=== PATIENT | female | born 1975 | race Two or more races ===

== ENCOUNTER 2016-03-21 09:47 | Inpatient (IN) | payer OTHER ==
[~2016-03-21] VITALS: Ht 167.6 cm; Wt 83.5 kg
[~2016-03-21 09:47] MED LIST: BACITRACIN3.5 GM OP; BACTRIM DS TAB1 EAC1 ORAL; CELEXA20 MG ORAL; NEURONTIN600 MG ORAL; SOMA350 MG PO; TYLENOL325 MG ORAL; XANAX1 MG ORAL
--- NOTE | 2016-03-21 10:29 | Emergency Room Report ---
History of Present Illness General Chief Complaint: Vomiting Source: Patient Present Illness HPI Patient is a 40-year-old female who presented after increased vomiting. Patient reports having sore throat and having multiple episodes of vomiting or earlier in the day. Patient had recently been started on Phenergan codeine. The patient had not been having any diarrhea. She denied hematemesis or black or bloody stools. Patient was noted to have recently been treated with antibiotics for a right great toe infection. Allergies: Coded Allergies: IBUPROFEN (Verified Allergy, Unknown, 02/03/16) Patient History Past Medical History: see triage record Last Menstrual Period: 03/06/2016 Now: No : 0 Para: 0 Reviewed Nursing Documentation: PMH: Agreed, PSxH: Agreed Review of Systems All Other Systems: negative except mentioned in HPI Physical Exam Vital Signs Date Time Temp Pulse Resp B/P Pulse Ox O2 Delivery O2 Flow Rate FiO2 03/21/16 09:58 99.3 120 20 121/82 94 Room Air Sp02 EP Interpretation: reviewed, normal General Appearance: normal inspection, well appearing, no apparent distress, alert, GCS 15, obese Head: atraumatic ENT: normal ENT inspection, hearing grossly normal, normal voice Neck: normal inspection, full range of motion, supple, no bony tend Respiratory: normal inspection, lungs clear, normal breath sounds, no respiratory distress, no retraction, no wheezing Cardiovascular #1: regular rate, rhythm, no edema Gastrointestinal: normal inspection, normal bowel sounds, non tender, soft, no guarding, no hernia Genitourinary: no CVA tenderness Musculoskeletal: normal inspection, back normal, normal range of motion Neurologic: normal inspection, alert, oriented x3, responsive, 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 Patient presented for abdominal pain. Differential diagnoses included ischemic bowel, appendicitis, perforated viscus , abdominal aortic aneurysm, inferior myocardial infarction, viral gastroenteritis. The patient was noted to have a slight elevated white blood count with a bandemia consistent with sepsis. Patient's states that she's had recent a urinary tract infection as well as some antibiotic use with Keflex in the past.The patient started on IV antibiotics. She was given IV fluids. The CT of the abdomen pelvis read by radiologist showed fatty liver and as well as a distended stomach and some small lesions in the liver. Patient was discussed with Dr. aldridge for inpatient management. . Labs Test 03/21/16 10:30 03/21/16 11:04 White Blood Count 12.9 K/UL (4.8-10.8) Red Blood Count 4.87 M/UL (4.20-5.40) Hemoglobin 13.5 G/DL (12.0-16.0) Hematocrit 41.6 % (37.0-47.0) Mean Corpuscular Volume 86 FL (80-99) Mean Corpuscular Hemoglobin 27.6 PG (27.0-31.0) Mean Corpuscular Hemoglobin Concent 32.3 G/DL (32.0-36.0) Red Cell Distribution Width 14.0 % (11.6-14.8) Platelet Count 203 K/UL (150-450) Mean Platelet Volume 7.2 FL (6.5-10.1) Neutrophils (%) (Auto) % (45.0-75.0) Lymphocytes (%) (Auto) % (20.0-45.0) Monocytes (%) (Auto) % (1.0-10.0) Eosinophils (%) (Auto) % (0.0-3.0) Basophils (%) (Auto) % (0.0-2.0) Differential Total Cells Counted 100 Neutrophils % (Manual) 74 % (45-75) Lymphocytes % (Manual) 2 % (20-45) Monocytes % (Manual) 5 % (1-10) Eosinophils % (Manual) 2 % (0-3) Basophils % (Manual) 0 % (0-2) Band Neutrophils 17 % (0-8) Platelet Estimate Adequate Platelet Morphology Normal Anisocytosis 1+ Sodium Level 135 mEQ/L (135-145) Potassium Level 3.7 mEQ/L (3.4-4.9) Chloride Level 93 mEQ/L (98-107) Carbon Dioxide Level 28 mEQ/L (20-30) Anion Gap 14 (5-15) Blood Urea Nitrogen 6 mg/dL (7-23) Creatinine 0.8 mg/dL (0.5-0.9) Estimat Glomerular Filtration Rate > 60 mL/min (>60) Glucose Level 133 mg/dL (74-106) Lactic Acid Level 1.70 mmol/L (0.66-2.22) Calcium Level 8.8 mg/dL (8.6-10.2) Total Bilirubin 1.7 mg/dL (0.0-1.2) Direct Bilirubin 0.7 mg/dL (0.1-0.3) Aspartate Amino Transf (AST/SGOT) 44 U/L (5-40) Alanine Aminotransferase (ALT/SGPT) 56 U/L (3-33) Alkaline Phosphatase 75 U/L (35-104) Total Creatine Kinase 141 U/L (26-140) Creatine Kinase MB 1.5 ng/mL (< 3.8) Creatine Kinase MB Relative Index 1.0 Troponin I < 0.30 ng/mL (<=0.30) Total Protein 7.1 g/dL (6.6-8.7) Albumin 4.1 g/dL (3.5-5.2) Globulin 3.0 g/dL Albumin/Globulin Ratio 1.3 (1.0-2.7) Urine Color Pale yellow Urine Appearance Clear Urine pH 7 (4.5-8.0) Urine Specific [place] 1.005 (1.005-1.035) Urine Protein Negative (NEGATIVE) Urine Glucose (UA) Negative (NEGATIVE) Urine Ketones Negative (NEGATIVE) Urine Occult Blood 1+ (NEGATIVE) Urine Nitrite Negative (NEGATIVE) Urine Bilirubin Negative (NEGATIVE) Urine Urobilinogen Normal MG/DL (0.0-1.0) Urine Leukocyte Esterase 1+ (NEGATIVE) Urine RBC 0-2 /HPF (0 - 2) Urine WBC 0-2 /HPF (0 - 2) Urine Squamous Epithelial Cells Few /LPF (NONE/OCC) Urine Bacteria Occasional /HPF (NONE) Urine HCG, Qualitative Negative EKG Diagnostic Results Rate: tachycardiac Rhythm: NSR ST Segments: no acute changes Rhythm Strip Diag. Results EP Interpretation: yes Rhythm: no PVC's, no ectopy, other - sinus tachycardia, 113 Chest X-Ray Diagnostic Results EP Interpretation: Yes Number of Views: 1 Last Vital Signs Date Time Temp Pulse Resp B/P Pulse Ox O2 Delivery O2 Flow Rate FiO2 03/21/16 09:58 99.3 120 20 121/82 94 Room Air Status: unchanged Disposition: XFER SHT-TRM HOSP Condition: Serious Renny,Song Mar 21, 2016 10:29
[2016-03-21 10:43] VITALS: BP 128/92
[2016-03-21 10:53] LABS: MEAN CORPUSCULAR HEMOGLOBIN 27.6 PG (27.0-31.0); MEAN CORPUSCULAR HGB CONC 32.3 G/DL (32.0-36.0); MEAN CORPUSCULAR VOLUME 86 FL (80-99); MEAN PLATELET VOLUME 7.2 FL (6.5-10.1); PLATELET COUNT 203 K/UL (150-450); RED BLOOD COUNT 4.87 M/UL (4.20-5.40); WHITE BLOOD COUNT 12.9 K/UL (4.8-10.8)
[2016-03-21 11:06] LABS: ALANINE AMINOTRANSFERASE 56 U/L (3-33); ALBUMIN/GLOBULIN RATIO 1.3 (1.0-2.7); ANION GAP 14 (5-15); ASPARTATE AMINO TRANSFERASE 44 U/L (5-40); CALCIUM 8.8 mg/dL (8.6-10.2); CARBON DIOXIDE 28 mEQ/L (20-30); CHLORIDE 93 mEQ/L (98-107); CREATININE 0.8 mg/dL (0.5-0.9); GLOMERULAR FILTRATION RATE > 60 mL/min (>60); HEMOLYSIS 2; POTASSIUM 3.7 mEQ/L (3.4-4.9); SODIUM 135 mEQ/L (135-145); TOTAL PROTEIN 7.1 g/dL (6.6-8.7)
[2016-03-21 11:10] LABS: TROPONIN I < 0.30 ng/mL (<=0.30)
[2016-03-21 11:16] LABS: APPEARANCE,URINE CLEAR; KETONES,URINE NEGATIVE (NEGATIVE); LEUKOCYTE ESTERASE ,URINE 1+ (NEGATIVE); NITRITE,URINE NEGATIVE (NEGATIVE); PH,URINE 7 (4.5-8.0); PROTEIN,URINE NEGATIVE (NEGATIVE); UROBILINOGEN,URINE NORMAL MG/DL (0.0-1.0)
[2016-03-21 11:16] LABS: CKMB 1.5 ng/mL (< 3.8)
[2016-03-21 11:23] LABS: BACTERIA,URINE OCCASIONAL /HPF; RBC,URINE 0-2 /HPF (0 - 2); SQUAMOUS EPITHELIAL CELL,UR FEW /LPF (NONE/OCC); WBC,URINE 0-2 /HPF (0 - 2)
[2016-03-21 11:27] LABS: BAND NEUTROPHILS % (MANUAL) 17 % (0-8); BASOPHILS % (MANUAL) 0 % (0-2); BILIRUBIN,DIRECT 0.7 mg/dL (0.1-0.3); EOSINOPHILS % (MANUAL) 2 % (0-3); LYMPHOCYTES % (MANUAL) 2 % (20-45); NEUTROPHILS % (MANUAL) 74 % (45-75); PLATELET ESTIMATE ADEQUATE; PLATELET MORPHOLOGY NORMAL; TOTAL CELLS COUNTED 100
[2016-03-21 11:28] LABS: ANISOCYTOSIS 1+
[2016-03-21] MEDS ORDERED: Lidocaine 2% Visc 15ml soln ORAL ONE (11:30)
--- NOTE | 2016-03-21 13:19 | Diagnostic Imaging Report ---
Indication: SOB Technique: One view of the chest Comparison: 02/03/2016 Findings: Body habitus limits evaluation. Less optimal inspiration currently. The heart appears borderline enlarged, although this is probably artifact of the differences in degree of inspiration. Lungs and pleural spaces are clear. No significant change, allowing for differences in degree of inspiration. Impression: No acute process. Hypoventilatory exam
[2016-03-21 14:32] VITALS: BP 108/72
[2016-03-21 16:03] VITALS: BP 103/72
[2016-03-21] MEDS ORDERED: Nitroglycerin Subl 0.4mg tab (Bottle Of 25) SL PRN (16:30)
[2016-03-21] MEDS ORDERED: Morphine Sulfate 2mg/ml Inj IVP PRN (16:30)
[2016-03-21] MEDS ORDERED: Mylanta II UD 30ml ORAL PRN (16:30)
[2016-03-21] MEDS ORDERED: Miralax 17gm pkt ORAL PRN (16:30)
--- NOTE | 2016-03-21 17:49 | History and Physical ---
History of Present Illness General Date patient seen: Mar 21, 2016 Reason for Hospitalization: Vomiting Present Illness HPI 40-year-old female who presented after increased vomiting. Patient reports having sore throat and having multiple episodes of vomiting or earlier in the day. Patient had recently been started on Phenergan codeine. Because of her sore throat, she is unable to ear regular food. Her mother just was diagnosed to have strep throat. Allergies: Coded Allergies: IBUPROFEN (Verified Allergy, Unknown, 02/03/16) Medication History Scheduled Bacitracin (Bacitracin), 1 APPLIC OP BID Carisoprodol* (Soma*), 350 MG PO Q6H, (Reported) Citalopram Hydrobromide* (Celexa*), 20 MG ORAL DAILY, (Reported) Gabapentin* (Neurontin*), 600 MG ORAL EVERY 6 HOURS, (Reported) Trimethoprim/Sulfamethoxazole 160/800* (Bactrim Ds Tablet*), 1 TAB ORAL TWICE A DAY Scheduled PRN Acetaminophen (Tylenol), 650 MG ORAL Q6H PRN for Prn Pain/Headache/Temp > 101 Miscellaneous Medications Alprazolam* (Xanax*), 1 TAB ORAL, (Reported) Patient History Healthcare decision maker Resuscitation status Advanced Directive on File Review of Systems All Other Systems: negative except mentioned in HPI Physical Exam Lines, tubes and drains: peripheral, central line HEENT: normocephalic Neck: tenderness, tender lateral Respiratory/Chest: chest wall non-tender, lungs clear Cardiovascular/Chest: normal peripheral pulses, normal rate Abdomen: normal bowel sounds, non tender Genitourinary/Rectal: normal genital exam Last 24 Hour Vital Signs Date Time Temp Pulse Resp B/P Pulse Ox O2 Delivery O2 Flow Rate FiO2 03/21/16 16:03 98.9 108 24 103/72 95 Room Air 03/21/16 15:22 98.9 120 22 108/72 95 Room Air 03/21/16 14:32 98.9 120 22 108/72 95 Room Air 03/21/16 10:43 99.3 118 16 128/92 95 Room Air 03/21/16 09:58 99.3 120 20 121/82 94 Room Air Laboratory Tests Test 03/21/16 10:30 03/21/16 11:04 White Blood Count 12.9 K/UL (4.8-10.8) H Red Blood Count 4.87 M/UL (4.20-5.40) Hemoglobin 13.5 G/DL (12.0-16.0) Hematocrit 41.6 % (37.0-47.0) Mean Corpuscular Volume 86 FL (80-99) Mean Corpuscular Hemoglobin 27.6 PG (27.0-31.0) Mean Corpuscular Hemoglobin Concent 32.3 G/DL (32.0-36.0) Red Cell Distribution Width 14.0 % (11.6-14.8) Platelet Count 203 K/UL (150-450) Mean Platelet Volume 7.2 FL (6.5-10.1) Neutrophils (%) (Auto) % (45.0-75.0) Lymphocytes (%) (Auto) % (20.0-45.0) Monocytes (%) (Auto) % (1.0-10.0) Eosinophils (%) (Auto) % (0.0-3.0) Basophils (%) (Auto) % (0.0-2.0) Differential Total Cells Counted 100 Neutrophils % (Manual) 74 % (45-75) Lymphocytes % (Manual) 2 % (20-45) L Monocytes % (Manual) 5 % (1-10) Eosinophils % (Manual) 2 % (0-3) Basophils % (Manual) 0 % (0-2) Band Neutrophils 17 % (0-8) H Platelet Estimate Adequate Platelet Morphology Normal Anisocytosis 1+ Sodium Level 135 mEQ/L (135-145) Potassium Level 3.7 mEQ/L (3.4-4.9) Chloride Level 93 mEQ/L (98-107) L Carbon Dioxide Level 28 mEQ/L (20-30) Anion Gap 14 (5-15) Blood Urea Nitrogen 6 mg/dL (7-23) L Creatinine 0.8 mg/dL (0.5-0.9) Estimat Glomerular Filtration Rate > 60 mL/min (>60) Glucose Level 133 mg/dL (74-106) H Lactic Acid Level 1.70 mmol/L (0.66-2.22) Calcium Level 8.8 mg/dL (8.6-10.2) Total Bilirubin 1.7 mg/dL (0.0-1.2) H Direct Bilirubin 0.7 mg/dL (0.1-0.3) H Aspartate Amino Transf (AST/SGOT) 44 U/L (5-40) H Alanine Aminotransferase (ALT/SGPT) 56 U/L (3-33) H Alkaline Phosphatase 75 U/L (35-104) Total Creatine Kinase 141 U/L (26-140) H Creatine Kinase MB 1.5 ng/mL (< 3.8) Creatine Kinase MB Relative Index 1.0 Troponin I < 0.30 ng/mL (<=0.30) Total Protein 7.1 g/dL (6.6-8.7) Albumin 4.1 g/dL (3.5-5.2) Globulin 3.0 g/dL Albumin/Globulin Ratio 1.3 (1.0-2.7) Urine Color Pale yellow Urine Appearance Clear Urine pH 7 (4.5-8.0) Urine Specific [place] 1.005 (1.005-1.035) Urine Protein Negative (NEGATIVE) Urine Glucose (UA) Negative (NEGATIVE) Urine Ketones Negative (NEGATIVE) Urine Occult Blood 1+ (NEGATIVE) H Urine Nitrite Negative (NEGATIVE) Urine Bilirubin Negative (NEGATIVE) Urine Urobilinogen Normal MG/DL (0.0-1.0) Urine Leukocyte Esterase 1+ (NEGATIVE) H Urine RBC 0-2 /HPF (0 - 2) Urine WBC 0-2 /HPF (0 - 2) Urine Squamous Epithelial Cells Few /LPF (NONE/OCC) Urine Bacteria Occasional /HPF (NONE) Urine HCG, Qualitative Negative Microbiology Date/Time Source Procedure Growth Status 03/21/16 10:30 Nasal Nares Influenza Types A,B Antigen (MALU) - Final Complete Height (Feet): 5 Height (Inches): 6.00 Weight (Pounds): 184 Medications Current Medications Medications (Trade) Dose Ordered Sig/Elian Route PRN Reason Start Time Stop Time Status Last Admin Dose Admin Acetaminophen (Tylenol) 650 mg Q4H PRN ORAL fever 03/21/16 16:30 04/20/16 16:29 UNV Al Hydroxide/Mg Hydroxide (Mylanta II) 30 ml Q6H PRN ORAL dyspepsia 03/21/16 16:30 04/20/16 16:29 UNV Carisoprodol (Soma) 350 mg Q6H ORAL 03/21/16 16:30 04/20/16 16:29 UNV Dextrose STAT PRN IV Hypoglycemia 12/30/16 16:30 04/20/16 16:29 UNV Dextrose/Sodium Chloride (D5 0.45% NS) 1,000 ml @ 75 mls/hr [id number] IV 03/21/16 17:40 04/20/16 17:39 UNV Diphenhydramine HCl (Benadryl) 25 mg Q6H PRN ORAL Itching/Pruritis 03/21/16 16:30 04/20/16 16:29 UNV Gabapentin 600 mg 600 mg EVERY 6 HOURS ORAL 03/21/16 18:00 04/20/16 17:59 UNV Heparin Sodium (Porcine) (Heparin 5000 units/ml) 5,000 units EVERY 12 HOURS SUBQ 03/21/16 21:00 04/20/16 20:59 UNV Morphine Sulfate (Morphine Sulfate) 2 mg EVERY 4 HOURS PRN IVP severe Pain (Pain Scale 7-10) 03/21/16 16:30 03/28/16 16:29 UNV Nitroglycerin (Ntg) 0.4 mg Q5M X 3 DOSES PRN SL Prn Chest Pain 03/21/16 16:30 04/20/16 16:29 UNV Ondansetron HCl (Zofran) 4 mg Q6H PRN IVP Nausea & Vomiting 03/21/16 16:30 04/20/16 16:29 UNV Piperacillin Sod/ Tazobactam Sod/ Sodium Chloride (Zosyn/Sodium Chloride 100ml bag) 100 ml @ 200 mls/hr EVERY 6 HOURS IVPB 03/21/16 18:00 03/28/16 17:59 UNV Polyethylene Glycol (Miralax) 17 gm HSPRN PRN ORAL Constipation 03/21/16 16:30 04/20/16 16:29 UNV Temazepam (Restoril) 15 mg HSPRN PRN ORAL Insomnia 03/21/16 16:30 03/28/16 16:29 UNV Assessment/Plan Problem List: (1) Sepsis ICD Codes: A41.9 - Sepsis, unspecified organism SNOMED: 34379716 Qualifiers: Qualified Codes: A40.0 - Sepsis due to Streptococcus, group A (2) Intractable vomiting ICD Codes: R11.10 - Vomiting, unspecified SNOMED: 858898174, [id number] Qualifiers: Qualified Codes: R11.11 - Vomiting without nausea (3) Pharyngitis ICD Codes: J02.9 - Acute pharyngitis, unspecified SNOMED: [id number] Qualifiers: Qualified Codes: J02.0 - Streptococcal pharyngitis Assessment/Plan NPO IV fluids IV antibiotics symptomatic treatment GI and ID evaluation SUMMER ALFORD Mar 21, 2016 17:48
[2016-03-21 19:39] VITALS: BP 115/74
[2016-03-21 20:30] VITALS: BP 119/73
[2016-03-21] MEDS: D5 1/2NS 1,000 ML IV SCH (21:26)
[2016-03-21] MEDS: Heparin 5000 units/ml inj SUBQ SCH (21:27)
[2016-03-22] VITALS: BP 121/66
[2016-03-22 04:00] VITALS: BP 107/62
[2016-03-22 06:49] LABS: BASOPHILS % (AUTO) 0.3 % (0.0-2.0); EOSINOPHILS % (AUTO) 2.4 % (0.0-3.0); LYMPHOCYTES % (AUTO) 9.4 % (20.0-45.0); MEAN CORPUSCULAR HEMOGLOBIN 27.8 PG (27.0-31.0); MEAN CORPUSCULAR HGB CONC 32.7 G/DL (32.0-36.0); MEAN CORPUSCULAR VOLUME 85 FL (80-99); MEAN PLATELET VOLUME 8.6 FL (6.5-10.1); MONOCYTES % (AUTO) 6.6 % (1.0-10.0); NEUTROPHILS % (AUTO) 81.3 % (45.0-75.0); PLATELET COUNT 145 K/UL (150-450); RED BLOOD COUNT 4.26 M/UL (4.20-5.40); RED CELL DISTRIBUTION WIDTH 14.3 % (11.6-14.8); WHITE BLOOD COUNT 7.4 K/UL (4.8-10.8)
[2016-03-22 07:24] LABS: ALANINE AMINOTRANSFERASE 51 U/L (3-33); AMYLASE 16 U/L (10-110); ANION GAP 12 (5-15); ASPARTATE AMINO TRANSFERASE 43 U/L (5-40); CALCIUM 8.2 mg/dL (8.6-10.2); CARBON DIOXIDE 29 mEQ/L (20-30); CHLORIDE 95 mEQ/L (98-107); CREATININE 0.9 mg/dL (0.5-0.9); GLOMERULAR FILTRATION RATE > 60 mL/min (>60); HEMOLYSIS 5; LIPASE 7 U/L (< 60); SODIUM 136 mEQ/L (135-145); TOTAL PROTEIN 6.5 g/dL (6.6-8.7)
[2016-03-22 07:49] LABS: BILIRUBIN,DIRECT 1.2 mg/dL (0.1-0.3)
[2016-03-22 08:00] VITALS: BP 120/65
[2016-03-22] MEDS: Heparin 5000 units/ml inj SUBQ SCH ×2 (09:00→20:01)
--- NOTE | 2016-03-22 09:31 | Consultation ---
Consult Note Consult Note ID CONSULT: Alan# [id number] Assessment/Plan ASSESSMENT: 40 y/o female with: // Sore throat ( pre-dated vomiting ) r/o GAS vs viral // Right hallux ingrown toenail / paronychia SP Rx bactrim // Leukocytosis r/o infection - resolved, afebrile ( some component of hemoconcentration ) - UA(-), influenza(-), CXR NAF, BCx, CT A/P pending // N/V x2 - resolved, CT A/P pending - lipase WNL, B-hCG(-) // Elevated LFTs - improved // Obesity // No ABX allergies // Full Code PLAN: - continue empiric zosyn d# 1 - check GAS screen, monospot, HIV - f/u cultures - f/u CT A/P - monitor CBC, temperatures - monitor CMP - supportive care Thanks! Will follow JACQUELINE VENEGAS Mar 22, 2016 09:31
[2016-03-22 12:00] VITALS: BP 121/67
[2016-03-22] MEDS: D5 1/2NS 1,000 ML IV SCH ×2 (14:15→22:25)
--- NOTE | 2016-03-22 14:38 | Diagnostic Imaging Report ---
Clinical Indication: PAIN, 32-year-old female with increased from the Technique: No oral contrast utilized, per emergency room physician request IV administration nonionic contrast. Venous phase spiral acquisition obtained through the abdomen and pelvis. Multiplanar reconstructions were generated. Total dose length product 1101 mGycm. CTDIvol(s) 19 mGy Comparison: None Findings: There are scattered colonic diverticula. No evidence of diverticulitis. Normal appendix. No small bowel distention. No free or loculated intraperitoneal air or fluid. The distal esophagus is unremarkable. The stomach is mildly distended, filled with fluid. The duodenum is unremarkable. The liver is enlarged. It is diffusely hypoattenuating, consistent with fatty change. There is a subcentimeter low-attenuation border between segment 6 and 7 posteriorly, too small to characterize. A similar lesion is seen in the left lobe, segment 2. Gallbladder, bile ducts, pancreas are unremarkable. The spleen is enlarged, measuring 16 cm long axis dimension. The adrenals and kidneys are unremarkable. No retroperitoneal or mesenteric mass or adenopathy. No pelvic mass or adenopathy. The bladder is distended. Uterus and ovaries are unremarkable. The included lung bases are clear. The bones demonstrate a fusion anomaly of the L1 posterior and facet degeneration at L5-S1, are otherwise unremarkable. Impression: No acute process Somewhat distended fluid-filled stomach, nonspecific Enlarged fatty liver Splenomegaly Too small to characterize hepatic low attenuation lesions, probably benign simple cysts or bile hamartomas. No further followup necessary Incidental findings as noted, including minimal degenerative spondylosis, posterior L1 fusion anomaly The CT scanner at [facility] is accredited by the [employer] and the scans are performed using protocols designed to limit radiation exposure to as low as reasonably achievable to attain images of sufficient resolution adequate for diagnostic evaluation.
[2016-03-22] MEDS ORDERED: Hurricaine 20% Spray ORO PRN (14:45)
--- NOTE | 2016-03-22 15:24 | Internal Med Progress Note ---
Subjective Date of Service: Mar 22, 2016 Physician Name LongoriaGerald Attending Physician Elda Yap Current Medications Medications (Trade) Dose Ordered Sig/Elian Route PRN Reason Start Time Stop Time Status Last Admin Dose Admin Acetaminophen (Tylenol) 650 mg Q4H PRN ORAL fever 03/21/16 16:30 04/20/16 16:29 Al Hydroxide/Mg Hydroxide (Mylanta II) 30 ml Q6H PRN ORAL dyspepsia 03/21/16 16:30 04/20/16 16:29 Benzocaine (Hurricaine) 1 sprays Q1H PRN PANCHITO PRN SORE THROAT UNRELIEVED BY 03/22/16 14:45 04/21/16 14:44 Carisoprodol (Soma) 350 mg Q6H PRN ORAL MUSCLE SPASM 03/21/16 16:30 04/20/16 16:29 Dextrose STAT PRN IV Hypoglycemia 03/21/16 16:30 04/20/16 16:29 Dextrose/Sodium Chloride (D5 0.45% NS) 1,000 ml @ 75 mls/hr [id number] IV 03/21/16 19:45 04/20/16 19:44 03/22/16 14:15 Diphenhydramine HCl (Benadryl) 25 mg Q6H PRN ORAL Itching/Pruritis 03/21/16 16:30 04/20/16 16:29 Gabapentin 600 mg 600 mg EVERY 6 HOURS ORAL 03/21/16 21:00 04/20/16 20:59 03/22/16 14:16 Heparin Sodium (Porcine) (Heparin 5000 units/ml) 5,000 units EVERY 12 HOURS SUBQ 03/21/16 21:00 04/20/16 20:59 03/21/16 21:27 Morphine Sulfate (Morphine Sulfate) 2 mg Q4H PRN IVP severe Pain (Pain Scale 7-10) 03/21/16 16:30 03/28/16 16:29 Nitroglycerin (Ntg) 0.4 mg Q5M X 3 DOSES PRN SL Prn Chest Pain 03/21/16 16:30 04/20/16 16:29 Ondansetron HCl (Zofran) 4 mg Q6H PRN IVP Nausea & Vomiting 03/21/16 16:30 04/20/16 16:29 Piperacillin Sod/ Tazobactam Sod/ Sodium Chloride (Zosyn/Sodium Chloride 100ml bag) 100 ml @ 25 mls/hr Q8H IVPB 03/21/16 22:30 03/28/16 22:29 03/22/16 14:15 Polyethylene Glycol (Miralax) 17 gm HSPRN PRN ORAL Constipation 03/21/16 16:30 04/20/16 16:29 Temazepam (Restoril) 15 mg HSPRN PRN ORAL Insomnia 03/21/16 16:30 03/28/16 16:29 Allergies: Coded Allergies: IBUPROFEN (Verified Allergy, Unknown, 02/03/16) ROS Limited/Unobtainable: No Constitutional: Reports: no symptoms HEENT: Reports: no symptoms Cardiovascular: Reports: no symptoms Gastrointestinal/Abdominal: Reports: abdominal pain, nausea, vomiting Genitourinary: Reports: no symptoms Neurologic/Psychiatric: Reports: no symptoms Subjective Cover for Int Med-Dr Yap Objective Last Vital Signs Date Time Temp Pulse Resp B/P Pulse Ox O2 Delivery O2 Flow Rate FiO2 03/22/16 12:00 98.4 109 20 121/67 96 Room Air General Appearance: WD/WN, no apparent distress, alert EENT: PERRL/EOMI, normal ENT inspection Neck: non-tender, normal alignment, supple Cardiovascular: normal peripheral pulses, normal rate, regular rhythm, no gallop/murmur, no JVD Respiratory/Chest: chest wall non-tender, lungs clear, normal breath sounds, no respiratory distress, no accessory muscle use Abdomen: no organomegaly, no mass, decreased bowel sounds, distended, guarding , tender Extremities: normal range of motion, non-tender 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 grossly normal, no motor/sensory deficits Skin: normal pigmentation, warm/dry Laboratory Tests Test 03/22/16 05:10 03/22/16 05:15 White Blood Count 7.4 K/UL (4.8-10.8) Red Blood Count 4.26 M/UL (4.20-5.40) Hemoglobin 11.8 G/DL (12.0-16.0) L Hematocrit 36.2 % (37.0-47.0) L Mean Corpuscular Volume 85 FL (80-99) Mean Corpuscular Hemoglobin 27.8 PG (27.0-31.0) Mean Corpuscular Hemoglobin Concent 32.7 G/DL (32.0-36.0) Red Cell Distribution Width 14.3 % (11.6-14.8) Platelet Count 145 K/UL (150-450) L Mean Platelet Volume 8.6 FL (6.5-10.1) Neutrophils (%) (Auto) 81.3 % (45.0-75.0) H Lymphocytes (%) (Auto) 9.4 % (20.0-45.0) L Monocytes (%) (Auto) 6.6 % (1.0-10.0) Eosinophils (%) (Auto) 2.4 % (0.0-3.0) Basophils (%) (Auto) 0.3 % (0.0-2.0) Sodium Level 136 mEQ/L (135-145) Potassium Level 4.0 mEQ/L (3.4-4.9) Chloride Level 95 mEQ/L (98-107) L Carbon Dioxide Level 29 mEQ/L (20-30) Anion Gap 12 (5-15) Blood Urea Nitrogen 10 mg/dL (7-23) Creatinine 0.9 mg/dL (0.5-0.9) Estimat Glomerular Filtration Rate > 60 mL/min (>60) Glucose Level 124 mg/dL (74-106) H Calcium Level 8.2 mg/dL (8.6-10.2) L Total Bilirubin 2.1 mg/dL (0.0-1.2) H Direct Bilirubin 1.2 mg/dL (0.1-0.3) H Aspartate Amino Transf (AST/SGOT) 43 U/L (5-40) H Alanine Aminotransferase (ALT/SGPT) 51 U/L (3-33) H Alkaline Phosphatase 88 U/L (35-104) Total Protein 6.5 g/dL (6.6-8.7) L Albumin 3.3 g/dL (3.5-5.2) L Globulin 3.2 g/dL Albumin/Globulin Ratio 1.0 (1.0-2.7) Amylase Level 16 U/L (10-110) Lipase 7 U/L (< 60) Activated Partial Thromboplast Time 38 SEC (23-33) H Microbiology Date/Time Source Procedure Growth Status 03/21/16 10:30 Nasal Nares Influenza Types A,B Antigen (MALU) - Final Complete Intake and Output 03/21/16 03/22/16 19:00 07:00 Intake Total 640 ml Balance 640 ml Intake IV Total 640 ml # Voids 4 Assessment/Plan Problem List: (1) Pharyngitis (2) Leukocytosis Assessment & Plan: See ID note. Cont zosyn. (3) Abnormal liver function test Assessment & Plan: Worsening; CT normal. Await GI consult. (4) Vomiting Assessment & Plan: resolving on zofran. NPO (5) Diverticulosis Status: not improved GERALD LONGORIA Mar 22, 2016 15:24
--- NOTE | 2016-03-22 15:27 | Consultation ---
DATE OF CONSULTATION: 03/22/2016 INFECTIOUS DISEASE CONSULTATION REQUESTING PHYSICIAN: Elda Yap M.D. REASON FOR CONSULTATION: Sore throat. HISTORY OF PRESENT ILLNESS: This is a 40-year-old obese female, who is admitted on 03/21/2016 with nausea and vomiting. The patient's main complaint is sore throat that predated her vomiting. She vomited twice, was not bloody. She recently completed a course of Bactrim for ingrown toenail on the right hallux. She has evidence of mild leukocytosis that is not resolved and is afebrile. Urinalysis is benign. Influenza screen is negative. Chest x-ray shows no acute findings. Blood cultures and CT abdomen and pelvis are pending. LFTs are mildly elevated and has improved. She has been started on empiric Zosyn and ID now consulted to assist in management. PAST MEDICAL HISTORY: 1. Recurrent ingrown toenail. 2. Obesity. MEDICATIONS: 1. Zosyn, day #1. 2. Gabapentin. 3. Subcutaneous heparin. 4. Soma. ALLERGIES: Ibuprofen. SOCIAL HISTORY: The patient lives locally with family. FAMILY HISTORY: Noncontributory. REVIEW OF SYSTEMS: As per history of present illness. Ten systems reviewed all pertinent positives and negatives noted. PHYSICAL EXAMINATION: VITAL SIGNS: Maximum temperature 99.3 degrees, blood pressure 107/62, heart rate 113, respiratory rate 22 and saturating 93% on room air. GENERAL: The patient is mildly ill appearing. HEENT: Mild pharyngitis. CARDIOVASCULAR: Regular rate and rhythm. No murmurs. PULMONARY: Clear to auscultation bilaterally. ABDOMINAL: Bowel sounds present. Soft, nondistended, and nontender. EXTREMITIES: No edema. Minimal right hallux edema and swelling. NEUROLOGIC: Alert and oriented x3. Nonfocal. LABORATORY AND DIAGNOSTIC DATA: White blood cell count 7.4 decreased from 12.9 with left shift, hemoglobin 11.8, and platelets 145,000. Sodium 136, potassium 4, chloride 95, bicarbonate 29, BUN 10, and creatinine 0.9. Lactic acid 1.7. AST 43, ALT 51, and alkaline phosphatase 88. Total bilirubin 2.1. Albumin 3.3. Lipase 7. Troponin negative x1. Beta HCG negative. Microbiology, 1. On 03/21/2016, influenza screen negative. 2. On 03/21/2016, blood culture pending. Imaging, 3. On 03/21/2016, chest x-ray no acute findings. 4. On 03/21/2016, CT abdomen and pelvis is pending. ASSESSMENT: 1. Sore throat, predated vomiting, rule out strep throat or viral. 2. Right hallux ingrown toenail and paronychia status post treatment with Bactrim. 3. Leukocytosis, rule out infection, now resolved and afebrile. Definitely some component of hemoconcentration. Urinalysis is benign. Influenza screen is negative. Chest x-ray shows no acute findings. Blood cultures and CT abdomen pelvis are pending. 4. Nausea and vomiting x2, now resolved. CT of abdomen and pelvis is pending. Lipase is within normal limits. test negative. 5. Elevated liver function tests, improved. 6. Obesity. 7. No antibiotic allergies. 8. Full Code. PLAN: 1. Continue empiric Zosyn day #1. 2. Check strep throat screen Monospot and HIV. 3. Follow up cultures. 4. Follow up CT abdomen and pelvis. 5. Monitor CBC and temperatures. 6. Monitor CMP. 7. Supportive care. Thank you. We will follow. Brandt See M.D. DR: MARTHA JOB#: [id number] CC: Opal Conner M.D. Arash Alborzi, M.D
[2016-03-22 16:03] VITALS: BP 126/65
[2016-03-22 20:00] VITALS: BP 127/74
[2016-03-22] MEDS ORDERED: Naloxone 1mg/ml 2ml IM ONE (20:30)
--- NOTE | 2016-03-22 22:46 | General Progress Note ---
Assessment/Plan Assessment/Plan GI Consult Dicatated Assessment - N/V, transient?, Etiology? - abdormal LFT - Fatty liver - Sedation - obesity Recommendations - Advance diet as tolerated - check hepatitis serologies - Neuro w/u - follow LFT - If vomiting persists, check HIDA scan Thank you Joan Sim Subjective Allergies: Coded Allergies: IBUPROFEN (Verified Allergy, Unknown, 02/03/16) Objective Last 24 Hour Vital Signs Date Time Temp Pulse Resp B/P Pulse Ox O2 Delivery O2 Flow Rate FiO2 03/22/16 20:00 97.3 117 15 127/74 91 Room Air 03/22/16 16:03 98.2 110 18 126/65 98 Room Air 03/22/16 12:00 98.4 109 20 121/67 96 Room Air 03/22/16 08:00 98.8 117 20 120/65 93 Room Air 03/22/16 04:00 97.9 113 22 107/62 93 Room Air 03/22/16 00:00 97.9 113 16 121/66 93 Room Air Intake and Output 03/21/16 03/22/16 19:00 07:00 Intake Total 640 ml Balance 640 ml IV Total 640 ml # Voids 4 Laboratory Tests 03/22/16 05:10: White Blood Count 7.4, Red Blood Count 4.26, Hemoglobin 11.8L, Hematocrit 36.2L , Mean Corpuscular Volume 85, Mean Corpuscular Hemoglobin 27.8, Mean Corpuscular Hemoglobin Concent 32.7, Red Cell Distribution Width 14.3, Platelet Count 145L, Mean Platelet Volume 8.6, Neutrophils (%) (Auto) 81.3H, Lymphocytes (%) (Auto) 9.4L, Monocytes (%) (Auto) 6.6, Eosinophils (%) (Auto) 2.4, Basophils (%) (Auto) 0.3, Sodium Level 136, Potassium Level 4.0, Chloride Level 95L, Carbon Dioxide Level 29, Anion Gap 12, Blood Urea Nitrogen 10, Creatinine 0.9, Estimat Glomerular Filtration Rate > 60, Glucose Level 124H, Calcium Level 8.2L, Total Bilirubin 2.1H, Direct Bilirubin 1.2H, Aspartate Amino Transf (AST/ SGOT) 43H, Alanine Aminotransferase (ALT/SGPT) 51H, Alkaline Phosphatase 88, Total Protein 6.5L, Albumin 3.3L, Globulin 3.2, Albumin/Globulin Ratio 1.0, Amylase Level 16, Lipase 7 03/22/16 05:15: Activated Partial Thromboplast Time 38H 03/22/16 22:00: Urine Opiates Screen [Pending], Urine Barbiturates Screen [Pending], Phencyclidine (PCP) Screen [Pending], Urine Amphetamines Screen [Pending], Urine Benzodiazepines Screen [Pending], Urine Cocaine Screen [Pending], Urine Marijuana (THC) Screen [Pending] Height (Feet): 5 Height (Inches): 6.00 Weight (Pounds): 184 MAXWELLLIZANDROCHIOMAIDAKATHE Mar 22, 2016 22:46
[2016-03-23 00:34] VITALS: BP 140/80
[2016-03-23] MEDS: Chloraseptic Spray 20mL Bottle ORAL PRN ×5 (01:31→17:50)
[2016-03-23 04:00] VITALS: BP 107/66
[2016-03-23 06:37] LABS: BASOPHILS % (AUTO) 0.7 % (0.0-2.0); EOSINOPHILS % (AUTO) 3.2 % (0.0-3.0); LYMPHOCYTES % (AUTO) 14.2 % (20.0-45.0); MEAN CORPUSCULAR HEMOGLOBIN 27.2 PG (27.0-31.0); MEAN CORPUSCULAR HGB CONC 32.2 G/DL (32.0-36.0); MEAN CORPUSCULAR VOLUME 85 FL (80-99); MEAN PLATELET VOLUME 7.4 FL (6.5-10.1); MONOCYTES % (AUTO) 4.8 % (1.0-10.0); NEUTROPHILS % (AUTO) 77.1 % (45.0-75.0); PLATELET COUNT 185 K/UL (150-450); RED BLOOD COUNT 3.99 M/UL (4.20-5.40); RED CELL DISTRIBUTION WIDTH 14.1 % (11.6-14.8); WHITE BLOOD COUNT 7.6 K/UL (4.8-10.8)
[2016-03-23 06:54] LABS: ALANINE AMINOTRANSFERASE 41 U/L (3-33); ALBUMIN/GLOBULIN RATIO 0.9 (1.0-2.7); ANION GAP 11 (5-15); ASPARTATE AMINO TRANSFERASE 32 U/L (5-40); CALCIUM 8.3 mg/dL (8.6-10.2); CARBON DIOXIDE 29 mEQ/L (20-30); CHLORIDE 100 mEQ/L (98-107); CREATININE 0.6 mg/dL (0.5-0.9); GLOMERULAR FILTRATION RATE > 60 mL/min (>60); HEMOLYSIS 0; POTASSIUM 3.8 mEQ/L (3.4-4.9); SODIUM 140 mEQ/L (135-145); TOTAL PROTEIN 6.2 g/dL (6.6-8.7)
[2016-03-23 08:00] VITALS: BP 142/91
--- NOTE | 2016-03-23 08:09 | Infectious Diseases Prog Note ---
Assessment/Plan Assessment/Plan ASSESSMENT: 40 y/o female with: // Sore throat ( pre-dated vomiting ) r/o GAS vs viral - monospot, throat Cx pending - negative: HIV // Right hallux ingrown toenail / paronychia SP Rx bactrim // Leukocytosis r/o infection - resolved, afebrile ( some component of hemoconcentration ) - UA(-), influenza(-), CXR NAF, BCx NGTD // Probable polysubstance abuse - erratic behavior last night 03/22, found with pills in bag, UDS(+) BZD, opiates, had to be given narcan // N/V x2 - resolved - lipase WNL, B-hCG(-) // Elevated LFTs - improved, hepatitis panel pending - CT A/P: No acute process. Somewhat distended fluid-filled stomach, nonspecific. Enlarged fatty liver. Splenomegaly. Too small to characterize hepatic low attenuation lesions, probably benign simple cysts or bile hamartomas. // Obesity // No ABX allergies // Full Code PLAN: - de-escalate empiric zosyn d# 2 to PCN VK d# 1 ( ABX d# 2 / 10 ) pending GAS screen. Ok to DC from ID standpoint - f/u GAS screen, monospot - f/u cultures - monitor CBC, temperatures - monitor CMP - supportive care Subjective Allergies: Coded Allergies: IBUPROFEN (Verified Allergy, Unknown, 02/03/16) Subjective remains afebrile. sore throat improved vomited x1 erratic behaviour last night, found with pills in bag, UDS(+) BZD, opiates, had to be given narcan Objective Vital Signs Last 24 Hour Vital Signs Date Time Temp Pulse Resp B/P Pulse Ox O2 Delivery O2 Flow Rate FiO2 03/23/16 04:00 97.0 113 21 107/66 95 Room Air 03/23/16 00:34 98.1 80 19 140/80 94 Room Air 03/22/16 20:00 97.3 117 15 127/74 91 Room Air 03/22/16 16:03 98.2 110 18 126/65 98 Room Air 03/22/16 12:00 98.4 109 20 121/67 96 Room Air Height (Feet): 5 Height (Inches): 6.00 Weight (Pounds): 184 General Appearance: no acute distress Respiratory/Chest: no respiratory distress Cardiovascular: normal rate, regular rhythm Abdomen: normal bowel sounds, soft, non tender, non distended Microbiology Date/Time Source Procedure Growth Status 03/21/16 10:35 Blood Blood Culture - Preliminary NO GROWTH AFTER 24 HOURS Resulted 03/21/16 10:30 Blood Blood Culture - Preliminary NO GROWTH AFTER 24 HOURS Resulted 03/21/16 10:30 Nasal Nares Influenza Types A,B Antigen (MALU) - Final Complete Laboratory Tests Test 03/22/16 22:00 03/23/16 05:30 Urine Opiates Screen Positive (NEGATIVE) H Urine Barbiturates Screen Negative (NEGATIVE) Phencyclidine (PCP) Screen Negative (NEGATIVE) Urine Amphetamines Screen Negative (NEGATIVE) Urine Benzodiazepines Screen Positive (NEGATIVE) H Urine Cocaine Screen Negative (NEGATIVE) Urine Marijuana (THC) Screen Negative (NEGATIVE) White Blood Count 7.6 K/UL (4.8-10.8) Red Blood Count 3.99 M/UL (4.20-5.40) L Hemoglobin 10.9 G/DL (12.0-16.0) L Hematocrit 33.8 % (37.0-47.0) L Mean Corpuscular Volume 85 FL (80-99) Mean Corpuscular Hemoglobin 27.2 PG (27.0-31.0) Mean Corpuscular Hemoglobin Concent 32.2 G/DL (32.0-36.0) Red Cell Distribution Width 14.1 % (11.6-14.8) Platelet Count 185 K/UL (150-450) Mean Platelet Volume 7.4 FL (6.5-10.1) Neutrophils (%) (Auto) 77.1 % (45.0-75.0) H Lymphocytes (%) (Auto) 14.2 % (20.0-45.0) L Monocytes (%) (Auto) 4.8 % (1.0-10.0) Eosinophils (%) (Auto) 3.2 % (0.0-3.0) H Basophils (%) (Auto) 0.7 % (0.0-2.0) Sodium Level 140 mEQ/L (135-145) Potassium Level 3.8 mEQ/L (3.4-4.9) Chloride Level 100 mEQ/L (98-107) Carbon Dioxide Level 29 mEQ/L (20-30) Anion Gap 11 (5-15) Blood Urea Nitrogen 9 mg/dL (7-23) Creatinine 0.6 mg/dL (0.5-0.9) Estimat Glomerular Filtration Rate > 60 mL/min (>60) Glucose Level 115 mg/dL (74-106) H Calcium Level 8.3 mg/dL (8.6-10.2) L Total Bilirubin 0.9 mg/dL (0.0-1.2) Aspartate Amino Transf (AST/SGOT) 32 U/L (5-40) Alanine Aminotransferase (ALT/SGPT) 41 U/L (3-33) H Alkaline Phosphatase 98 U/L (35-104) Total Protein 6.2 g/dL (6.6-8.7) L Albumin 3.0 g/dL (3.5-5.2) L Globulin 3.2 g/dL Albumin/Globulin Ratio 0.9 (1.0-2.7) L Hepatitis A IgM Antibody Pending Hepatitis B Surface Antigen Pending Hepatitis B Core IgM Antibody Pending Hepatitis C Antibody Pending HIV (1&2) Antibody Rapid Negative (NEGATIVE) Current Medications Medications (Trade) Dose Ordered Sig/Elian Route PRN Reason Start Time Stop Time Status Last Admin Dose Admin Acetaminophen (Tylenol) 650 mg Q4H PRN ORAL fever 03/21/16 16:30 04/20/16 16:29 Al Hydroxide/Mg Hydroxide (Mylanta II) 30 ml Q6H PRN ORAL dyspepsia 03/21/16 16:30 04/20/16 16:29 Carisoprodol 350 mg 350 mg Q6H PRN ORAL MUSCLE SPASM 03/21/16 16:30 04/20/16 16:29 Dextrose STAT PRN IV Hypoglycemia 03/21/16 16:30 04/20/16 16:29 Dextrose/Sodium Chloride (D5 0.45% NS) 1,000 ml @ 75 mls/hr [id number] IV 03/21/16 19:45 04/20/16 19:44 03/22/16 14:15 Diphenhydramine HCl (Benadryl) 25 mg Q6H PRN ORAL Itching/Pruritis 03/21/16 16:30 04/20/16 16:29 Heparin Sodium (Porcine) (Heparin 5000 units/ml) 5,000 units EVERY 12 HOURS SUBQ 03/21/16 21:00 04/20/16 20:59 03/21/16 21:27 Morphine Sulfate (Morphine Sulfate) 2 mg Q4H PRN IVP severe Pain (Pain Scale 7-10) 03/21/16 16:30 03/28/16 16:29 Nitroglycerin (Ntg) 0.4 mg Q5M X 3 DOSES PRN SL Prn Chest Pain 03/21/16 16:30 04/20/16 16:29 Ondansetron HCl (Zofran) 4 mg Q6H PRN IVP Nausea & Vomiting 03/21/16 16:30 04/20/16 16:29 03/22/16 20:58 Phenol/Menthol (Chloraseptic) 1 spray Q1H PRN ORAL SORE THROAT 03/22/16 16:45 04/21/16 16:44 03/23/16 05:29 Piperacillin Sod/ Tazobactam Sod/ Sodium Chloride (Zosyn/Sodium Chloride 100ml bag) 100 ml @ 25 mls/hr Q8H IVPB 03/21/16 22:30 03/28/16 22:29 03/23/16 05:29 Polyethylene Glycol (Miralax) 17 gm HSPRN PRN ORAL Constipation 03/21/16 16:30 04/20/16 16:29 Temazepam (Restoril) 15 mg HSPRN PRN ORAL Insomnia 03/21/16 16:30 03/28/16 16:29 JACQUELINE VENEGAS Mar 23, 2016 08:09
[2016-03-23] MEDS: Heparin 5000 units/ml inj SUBQ SCH ×2 (08:15→20:42)
[2016-03-23] MEDS ORDERED: Tubing IV Secondary IV ONE (11:21)
[2016-03-23 12:00] VITALS: BP 136/78
[2016-03-23] MEDS: D5 1/2NS 1,000 ML IV SCH (12:41)
--- NOTE | 2016-03-23 13:18 | General Progress Note ---
Assessment/Plan Assessment/Plan Assessment - N/V, transient?, Etiology? - abdormal LFT - Fatty liver - Sedation - obesity Recommendations - Advance diet as tolerated - check hepatitis serologies - Neuro w/u - follow LFT - If vomiting persists, check HIDA scan Subjective Allergies: Coded Allergies: IBUPROFEN (Verified Allergy, Unknown, 02/03/16) Subjective more awake c/o sore throat tolerating liquids Objective Last 24 Hour Vital Signs Date Time Temp Pulse Resp B/P Pulse Ox O2 Delivery O2 Flow Rate FiO2 03/23/16 08:00 98.1 101 20 142/91 94 Room Air 03/23/16 04:00 97.0 113 21 107/66 95 Room Air 03/23/16 00:34 98.1 80 19 140/80 94 Room Air 03/22/16 20:00 97.3 117 15 127/74 91 Room Air 03/22/16 16:03 98.2 110 18 126/65 98 Room Air Intake and Output 03/22/16 03/23/16 19:00 07:00 Intake Total 100 ml 1370 ml Output Total 100 ml Balance 100 ml 1270 ml Intake Oral 800 ml IV Total 100 ml 570 ml Output Emesis 100 ml # Voids 3 3 # Bowel Movements 4 Laboratory Tests 03/22/16 22:00: Urine Opiates Screen PositiveH, Urine Barbiturates Screen Negative, Phencyclidine (PCP) Screen Negative, Urine Amphetamines Screen Negative, Urine Benzodiazepines Screen PositiveH, Urine Cocaine Screen Negative, Urine Marijuana (THC) Screen Negative 03/23/16 05:30: White Blood Count 7.6, Red Blood Count 3.99L, Hemoglobin 10.9L, Hematocrit 33.8L , Mean Corpuscular Volume 85, Mean Corpuscular Hemoglobin 27.2, Mean Corpuscular Hemoglobin Concent 32.2, Red Cell Distribution Width 14.1, Platelet Count 185, Mean Platelet Volume 7.4, Neutrophils (%) (Auto) 77.1H, Lymphocytes ( %) (Auto) 14.2L, Monocytes (%) (Auto) 4.8, Eosinophils (%) (Auto) 3.2H, Basophils (%) (Auto) 0.7, Sodium Level 140, Potassium Level 3.8, Chloride Level 100, Carbon Dioxide Level 29, Anion Gap 11, Blood Urea Nitrogen 9, Creatinine 0.6, Estimat Glomerular Filtration Rate > 60, Glucose Level 115H, Calcium Level 8.3L, Total Bilirubin 0.9, Aspartate Amino Transf (AST/SGOT) 32, Alanine Aminotransferase (ALT/SGPT) 41H, Alkaline Phosphatase 98, Total Protein 6.2L, Albumin 3.0L, Globulin 3.2, Albumin/Globulin Ratio 0.9L, Hepatitis A IgM Antibody [Pending], Hepatitis B Surface Antigen [Pending], Hepatitis B Core IgM Antibody [Pending], Hepatitis C Antibody [Pending], HIV (1&2) Antibody Rapid Negative Height (Feet): 5 Height (Inches): 6.00 Weight (Pounds): 184 Objective WDWN NCAT supple CTA RRR Soft NT ND no edema non focal JENNI BRIGGS Mar 23, 2016 13:18
[2016-03-23 16:16] VITALS: BP 156/97
--- NOTE | 2016-03-23 17:45 | Internal Med Progress Note ---
Subjective Date of Service: Mar 23, 2016 Physician Name LongoriaGerald Attending Physician Elda Yap Current Medications Medications (Trade) Dose Ordered Sig/Elian Route PRN Reason Start Time Stop Time Status Last Admin Dose Admin Acetaminophen (Tylenol) 650 mg Q4H PRN ORAL fever 03/21/16 16:30 04/20/16 16:29 Al Hydroxide/Mg Hydroxide (Mylanta II) 30 ml Q6H PRN ORAL dyspepsia 03/21/16 16:30 04/20/16 16:29 Carisoprodol 350 mg 350 mg Q6H PRN ORAL MUSCLE SPASM 03/21/16 16:30 04/20/16 16:29 Dextrose (Dextrose 50%) STAT PRN IV Hypoglycemia 03/21/16 16:30 04/20/16 16:29 Dextrose/Sodium Chloride (D5 0.45% NS) 1,000 ml @ 75 mls/hr [id number] IV 03/21/16 19:45 04/20/16 19:44 03/23/16 12:41 Diphenhydramine HCl (Benadryl) 25 mg Q6H PRN ORAL Itching/Pruritis 03/21/16 16:30 04/20/16 16:29 Heparin Sodium (Porcine) (Heparin 5000 units/ml) 5,000 units EVERY 12 HOURS SUBQ 03/21/16 21:00 04/20/16 20:59 03/23/16 08:15 Morphine Sulfate (Morphine Sulfate) 2 mg Q4H PRN IVP severe Pain (Pain Scale 7-10) 03/21/16 16:30 03/28/16 16:29 Nitroglycerin (Ntg) 0.4 mg Q5M X 3 DOSES PRN SL Prn Chest Pain 03/21/16 16:30 04/20/16 16:29 Ondansetron HCl (Zofran) 4 mg Q6H PRN IVP Nausea & Vomiting 03/21/16 16:30 04/20/16 16:29 03/22/16 20:58 Penicillin V Potassium (Penicillin V Potassium) 500 mg Q12HR ORAL 03/23/16 21:00 03/30/16 09:59 Phenol/Menthol (Chloraseptic) 1 spray Q1H PRN ORAL SORE THROAT 03/22/16 16:45 04/21/16 16:44 03/23/16 14:20 Polyethylene Glycol (Miralax) 17 gm HSPRN PRN ORAL Constipation 03/21/16 16:30 04/20/16 16:29 Temazepam (Restoril) 15 mg HSPRN PRN ORAL Insomnia 03/21/16 16:30 03/28/16 16:29 Allergies: Coded Allergies: IBUPROFEN (Verified Allergy, Unknown, 02/03/16) ROS Limited/Unobtainable: No Constitutional: Reports: no symptoms HEENT: Reports: throat pain Cardiovascular: Reports: no symptoms Respiratory: Reports: no symptoms Gastrointestinal/Abdominal: Reports: nausea, vomiting Genitourinary: Reports: no symptoms Neurologic/Psychiatric: Reports: no symptoms Subjective Cover for Int Med-Dr Yap Objective Last Vital Signs Date Time Temp Pulse Resp B/P Pulse Ox O2 Delivery O2 Flow Rate FiO2 03/23/16 16:16 98.1 105 19 156/97 96 Room Air Laboratory Tests Test 03/22/16 22:00 03/23/16 05:30 Urine Opiates Screen Positive (NEGATIVE) H Urine Barbiturates Screen Negative (NEGATIVE) Phencyclidine (PCP) Screen Negative (NEGATIVE) Urine Amphetamines Screen Negative (NEGATIVE) Urine Benzodiazepines Screen Positive (NEGATIVE) H Urine Cocaine Screen Negative (NEGATIVE) Urine Marijuana (THC) Screen Negative (NEGATIVE) White Blood Count 7.6 K/UL (4.8-10.8) Red Blood Count 3.99 M/UL (4.20-5.40) L Hemoglobin 10.9 G/DL (12.0-16.0) L Hematocrit 33.8 % (37.0-47.0) L Mean Corpuscular Volume 85 FL (80-99) Mean Corpuscular Hemoglobin 27.2 PG (27.0-31.0) Mean Corpuscular Hemoglobin Concent 32.2 G/DL (32.0-36.0) Red Cell Distribution Width 14.1 % (11.6-14.8) Platelet Count 185 K/UL (150-450) Mean Platelet Volume 7.4 FL (6.5-10.1) Neutrophils (%) (Auto) 77.1 % (45.0-75.0) H Lymphocytes (%) (Auto) 14.2 % (20.0-45.0) L Monocytes (%) (Auto) 4.8 % (1.0-10.0) Eosinophils (%) (Auto) 3.2 % (0.0-3.0) H Basophils (%) (Auto) 0.7 % (0.0-2.0) Sodium Level 140 mEQ/L (135-145) Potassium Level 3.8 mEQ/L (3.4-4.9) Chloride Level 100 mEQ/L (98-107) Carbon Dioxide Level 29 mEQ/L (20-30) Anion Gap 11 (5-15) Blood Urea Nitrogen 9 mg/dL (7-23) Creatinine 0.6 mg/dL (0.5-0.9) Estimat Glomerular Filtration Rate > 60 mL/min (>60) Glucose Level 115 mg/dL (74-106) H Calcium Level 8.3 mg/dL (8.6-10.2) L Total Bilirubin 0.9 mg/dL (0.0-1.2) Aspartate Amino Transf (AST/SGOT) 32 U/L (5-40) Alanine Aminotransferase (ALT/SGPT) 41 U/L (3-33) H Alkaline Phosphatase 98 U/L (35-104) Total Protein 6.2 g/dL (6.6-8.7) L Albumin 3.0 g/dL (3.5-5.2) L Globulin 3.2 g/dL Albumin/Globulin Ratio 0.9 (1.0-2.7) L Hepatitis A IgM Antibody Pending Hepatitis B Surface Antigen Pending Hepatitis B Core IgM Antibody Pending Hepatitis C Antibody Pending HIV (1&2) Antibody Rapid Negative (NEGATIVE) Microbiology Date/Time Source Procedure Growth Status 03/21/16 10:35 Blood Blood Culture - Preliminary NO GROWTH AFTER 24 HOURS Resulted 03/21/16 10:30 Blood Blood Culture - Preliminary NO GROWTH AFTER 24 HOURS Resulted 03/22/16 13:00 Throat Throat Culture - Preliminary NO BETA STREP ISOLATED. Resulted 03/21/16 10:30 Nasal Nares Influenza Types A,B Antigen (MALU) - Final Complete Intake and Output 03/22/16 03/23/16 19:00 07:00 Intake Total 100 ml 1370 ml Output Total 100 ml Balance 100 ml 1270 ml Intake Oral 800 ml IV Total 100 ml 570 ml Output Emesis 100 ml # Voids 3 3 # Bowel Movements 4 Objective General Appearance: WD/WN, no apparent distress, alert EENT: PERRL/EOMI, normal ENT inspection Neck: non-tender, normal alignment, supple Cardiovascular: normal peripheral pulses, normal rate, regular rhythm, no gallop/murmur, no JVD Respiratory/Chest: chest wall non-tender, lungs clear, normal breath sounds, no respiratory distress, no accessory muscle use Abdomen: no organomegaly, no mass, decreased bowel sounds, distended, guarding , tender Extremities: normal range of motion, non-tender 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 Cont zosyn. (3) Abnormal liver function test Assessment & Plan: Worsening; CT normal. See GI consult. (4) Vomiting Assessment & Plan: resolving on zofran. NPO (5) Diverticulosis Status: not improved GERALD LONGORIA Mar 23, 2016 17:45
--- NOTE | 2016-03-23 20:27 | Consultation ---
DATE OF CONSULTATION: 03/22/2016 GASTROLOGY CONSULTATION CONSULTING PHYSICIAN: Yasmany Sim M.D. CHIEF COMPLAINT: I was asked to see this patient for evaluation of nausea and vomiting. HISTORY OF PRESENT ILLNESS: The patient is a 40-year-old obese woman, who was brought to the hospital for nausea and vomiting. At the time of my evaluation, she appeared to be sedated, although arousable. She also and appeared to be comfortable. She said she is feeling okay now and she has no complaints. She said she did have some vomiting when she came in, but that was only for a day. The patient apparently was brought to the emergency room with the above complaints and a CT scan of the abdomen and pelvis was done showing somewhat distended fluid full of stomach and large fatty liver and splenomegaly; however, there is no evidence of bowel obstruction. PAST MEDICAL HISTORY: History of ingrown toenail and history of obesity. ALLERGIES: Ibuprofen. FAMILY HISTORY: Noncontributory. SOCIAL HISTORY: The patient lives in the local area with family. REVIEW OF SYSTEMS: Otherwise negative. PHYSICAL EXAMINATION: GENERAL: This is an obese woman, seen in her room, resting comfortably. HEENT: Normocephalic and atraumatic. Sclerae anicteric. Oropharynx is clear. NECK: Supple. CHEST: Clear to auscultation. CARDIOVASCULAR: Revealed regular rate. ABDOMEN: Soft with good bowel sounds. There is no organomegaly. There is a questionable tenderness to palpation in the lower abdomen that is not reproducible and the patient is somewhat sedated. EXTREMITIES: Revealed no edema. NEUROLOGIC: Nonfocal, although hard to examine given the patient's sedation. LABORATORY DATA: Noted. ASSESSMENT: This patient presents with nausea and vomiting, which appears to be acute duration and perhaps resolving. Differential diagnosis would include gastroenteritis or gastritis. , but the patient's medications will have to be evaluated. The patient also has abnormal liver test, therefore, these will have to be repeated and hepatitis serologies will have to be done. If still persistent vomiting and abnormal liver test, then the patient can be evaluated for gallbladder or biliary disorders. RECOMMENDATIONS: 1. Follow liver tests. 2. Check hepatitis serology. 3. Consider neurology evaluation for sedation. 4. Advance the diet as tolerated. Thank you for asking me to participate in the care of this patient. Yasmany Sim M.D. DR: CRISTAL JOB#: [id number] CC:
[2016-03-23 20:28] VITALS: BP 132/68
[2016-03-23] MEDS: Penicillin Vk 250mg tab ORAL SCH (20:41)
[2016-03-24] VITALS: BP 142/90
[2016-03-24] MEDS: D5 1/2NS 1,000 ML IV SCH ×2 (01:29→14:25)
[2016-03-24 06:01] VITALS: BP 126/73
[2016-03-24 08:00] VITALS: BP 166/85
[2016-03-24] MEDS: Penicillin Vk 250mg tab ORAL SCH (08:29)
[2016-03-24] MEDS: Heparin 5000 units/ml inj SUBQ SCH (08:32)
[2016-03-24] MEDS: Chloraseptic Spray 20mL Bottle ORAL PRN ×2 (08:33→15:06)
--- NOTE | 2016-03-24 08:42 | Infectious Diseases Prog Note ---
Assessment/Plan Assessment/Plan ASSESSMENT: 40 y/o female with: // Sore throat ( pre-dated vomiting ) r/o GAS vs viral - monospot unavailable, throat Cx NGTD - negative: HIV // Right hallux ingrown toenail / paronychia SP Rx bactrim // Leukocytosis r/o infection - resolved, afebrile ( some component of hemoconcentration ) - UA(-), influenza(-), CXR NAF, BCx NGTD // Probable polysubstance abuse - erratic behavior 03/22, found with pills in bag, UDS(+) BZD, opiates, had to be given narcan // N/V x2 - resolved - lipase WNL, B-hCG(-) // Elevated LFTs - improved, hepatitis panel pending - CT A/P: No acute process. Somewhat distended fluid-filled stomach, nonspecific. Enlarged fatty liver. Splenomegaly. Too small to characterize hepatic low attenuation lesions, probably benign simple cysts or bile hamartomas. // Obesity // No ABX allergies // Full Code PLAN: - ok to DC on PCN VK d# 2 ( ABX d# 3 / ) from ID standpoint - f/u final cultures - monitor CBC, temperatures - monitor CMP - supportive care Subjective Allergies: Coded Allergies: IBUPROFEN (Verified Allergy, Unknown, 02/03/16) Subjective remains afebrile. sore throat improved Objective Vital Signs Last 24 Hour Vital Signs Date Time Temp Pulse Resp B/P Pulse Ox O2 Delivery O2 Flow Rate FiO2 03/24/16 06:01 97.9 94 20 126/73 98 Room Air 03/24/16 00:00 97.8 102 20 142/90 96 Room Air 03/23/16 20:42 97.9 03/23/16 20:28 97.9 101 20 132/68 96 Room Air 03/23/16 16:16 98.1 105 19 156/97 96 Room Air 03/23/16 12:00 98.6 92 20 136/78 96 Room Air Height (Feet): 5 Height (Inches): 6.00 Weight (Pounds): 184 General Appearance: no acute distress Respiratory/Chest: no respiratory distress Cardiovascular: normal rate, regular rhythm Abdomen: normal bowel sounds, soft, non tender, non distended Microbiology Date/Time Source Procedure Growth Status 03/21/16 10:35 Blood Blood Culture - Preliminary NO GROWTH AFTER 48 HOURS Resulted 03/21/16 10:30 Blood Blood Culture - Preliminary NO GROWTH AFTER 48 HOURS Resulted 03/22/16 13:00 Throat Throat Culture - Preliminary NO BETA STREP ISOLATED. Resulted 03/21/16 10:30 Nasal Nares Influenza Types A,B Antigen (MALU) - Final Complete Current Medications Medications (Trade) Dose Ordered Sig/Elian Route PRN Reason Start Time Stop Time Status Last Admin Dose Admin Acetaminophen (Tylenol) 650 mg Q4H PRN ORAL fever 03/21/16 16:30 04/20/16 16:29 Al Hydroxide/Mg Hydroxide (Mylanta II) 30 ml Q6H PRN ORAL dyspepsia 03/21/16 16:30 04/20/16 16:29 Carisoprodol 350 mg 350 mg Q6H PRN ORAL MUSCLE SPASM 03/21/16 16:30 04/20/16 16:29 Citalopram Hydrobromide (celeXA) 20 mg DAILY ORAL 03/24/16 09:00 04/23/16 08:59 03/24/16 08:29 Dextrose (Dextrose 50%) STAT PRN IV Hypoglycemia 03/21/16 16:30 04/20/16 16:29 Dextrose/Sodium Chloride (D5 0.45% NS) 1,000 ml @ 75 mls/hr [id number] IV 03/21/16 19:45 04/20/16 19:44 03/24/16 01:29 Diphenhydramine HCl (Benadryl) 25 mg Q6H PRN ORAL Itching/Pruritis 03/21/16 16:30 04/20/16 16:29 Gabapentin (Neurontin) 600 mg EVERY 6 HOURS ORAL 03/23/16 19:30 04/22/16 19:29 03/24/16 05:59 Heparin Sodium (Porcine) (Heparin 5000 units/ml) 5,000 units EVERY 12 HOURS SUBQ 03/21/16 21:00 04/20/16 20:59 03/24/16 08:32 Morphine Sulfate (Morphine Sulfate) 2 mg Q4H PRN IVP severe Pain (Pain Scale 7-10) 03/21/16 16:30 03/28/16 16:29 Nitroglycerin (Ntg) 0.4 mg Q5M X 3 DOSES PRN SL Prn Chest Pain 03/21/16 16:30 04/20/16 16:29 Ondansetron HCl (Zofran) 4 mg Q6H PRN IVP Nausea & Vomiting 03/21/16 16:30 04/20/16 16:29 03/22/16 20:58 Penicillin V Potassium (Penicillin V Potassium) 500 mg Q12HR ORAL 03/23/16 21:00 03/30/16 09:59 03/24/16 08:29 Phenol/Menthol (Chloraseptic) 1 spray Q1H PRN ORAL SORE THROAT 03/22/16 16:45 04/21/16 16:44 03/24/16 08:33 Polyethylene Glycol (Miralax) 17 gm HSPRN PRN ORAL Constipation 03/21/16 16:30 04/20/16 16:29 Temazepam (Restoril) 15 mg HSPRN PRN ORAL Insomnia 03/21/16 16:30 03/28/16 16:29 JACQUELINE VENEGAS Mar 24, 2016 08:42
[2016-03-24] MEDS ORDERED: Citalopram 20mg Tab ORAL SCH (09:00)
[2016-03-24 12:00] VITALS: BP 152/80
[2016-03-24] MEDS ORDERED: PENICILLIN V P500 MG PO (15:03)
--- NOTE | 2016-03-24 15:10 | Pulmonology Progress Note ---
Assessment/Plan Problems: (1) Sepsis (2) Intractable vomiting (3) Pharyngitis Assessment/Plan improving continue oral antibiotics ID recommends dc home with oral abx Subjective ROS Limited/Unobtainable: No Constitutional: Reports: no symptoms HEENT: Repors: no symptoms Respiratory: Reports: no symptoms Cardiovascular: Reports: no symptoms Gastrointestinal/Abdominal: Reports: no symptoms Allergies: Coded Allergies: IBUPROFEN (Verified Allergy, Unknown, 02/03/16) Objective Last 24 Hour Vital Signs Date Time Temp Pulse Resp B/P Pulse Ox O2 Delivery O2 Flow Rate FiO2 03/24/16 12:00 98.4 88 20 152/80 97 Room Air 03/24/16 08:00 98.6 92 20 166/85 96 Room Air 03/24/16 06:01 97.9 94 20 126/73 98 Room Air 03/24/16 00:00 97.8 102 20 142/90 96 Room Air 03/23/16 20:42 97.9 03/23/16 20:28 97.9 101 20 132/68 96 Room Air 03/23/16 16:16 98.1 105 19 156/97 96 Room Air Intake and Output 03/23/16 03/24/16 19:00 07:00 Intake Total 375 ml 1265 ml Balance 375 ml 1265 ml Intake Oral 440 ml IV Total 375 ml 825 ml # Voids 3 2 Objective still some sore throat, General Appearance: WD/WN, no acute distress Respiratory/Chest: chest wall non-tender, lungs clear Cardiovascular: normal peripheral pulses, normal rate Abdomen: normal bowel sounds, soft, non tender Extremities: no cyanosis Neurologic/Psychiatric: bread dumper II-XII grossly normal Musculoskeletal: normal muscle bulk Microbiology Date/Time Source Procedure Growth Status 03/22/16 13:00 Throat Throat Culture - Final NO BETA STREP ISOLATED. Complete Current Medications Medications (Trade) Dose Ordered Sig/Elian Route PRN Reason Start Time Stop Time Status Last Admin Dose Admin Acetaminophen (Tylenol) 650 mg Q4H PRN ORAL fever 03/21/16 16:30 04/20/16 16:29 Al Hydroxide/Mg Hydroxide (Mylanta II) 30 ml Q6H PRN ORAL dyspepsia 03/21/16 16:30 04/20/16 16:29 Carisoprodol 350 mg 350 mg Q6H PRN ORAL MUSCLE SPASM 03/21/16 16:30 04/20/16 16:29 Citalopram Hydrobromide (celeXA) 20 mg DAILY ORAL 03/24/16 09:00 04/23/16 08:59 03/24/16 08:29 Dextrose (Dextrose 50%) STAT PRN IV Hypoglycemia 03/21/16 16:30 04/20/16 16:29 Dextrose/Sodium Chloride (D5 0.45% NS) 1,000 ml @ 75 mls/hr [id number] IV 03/21/16 19:45 04/20/16 19:44 03/24/16 01:29 Diphenhydramine HCl (Benadryl) 25 mg Q6H PRN ORAL Itching/Pruritis 03/21/16 16:30 04/20/16 16:29 Gabapentin (Neurontin) 600 mg EVERY 6 HOURS ORAL 03/23/16 19:30 04/22/16 19:29 03/24/16 11:33 Heparin Sodium (Porcine) (Heparin 5000 units/ml) 5,000 units EVERY 12 HOURS SUBQ 03/21/16 21:00 04/20/16 20:59 03/24/16 08:32 Morphine Sulfate (Morphine Sulfate) 2 mg Q4H PRN IVP severe Pain (Pain Scale 7-10) 03/21/16 16:30 03/28/16 16:29 Nitroglycerin (Ntg) 0.4 mg Q5M X 3 DOSES PRN SL Prn Chest Pain 03/21/16 16:30 04/20/16 16:29 Ondansetron HCl (Zofran) 4 mg Q6H PRN IVP Nausea & Vomiting 03/21/16 16:30 04/20/16 16:29 03/22/16 20:58 Penicillin V Potassium (Penicillin V Potassium) 500 mg Q12HR ORAL 03/23/16 21:00 03/30/16 09:59 03/24/16 08:29 Phenol/Menthol (Chloraseptic) 1 spray Q1H PRN ORAL SORE THROAT 03/22/16 16:45 04/21/16 16:44 03/24/16 08:33 Polyethylene Glycol (Miralax) 17 gm HSPRN PRN ORAL Constipation 03/21/16 16:30 04/20/16 16:29 Temazepam (Restoril) 15 mg HSPRN PRN ORAL Insomnia 03/21/16 16:30 03/28/16 16:29 SUMMER ALFORD Mar 24, 2016 15:10
[2016-03-24 16:08] VITALS: BP 158/80
[2016-03-24] MEDS ORDERED: D5 1/2NS 1000ml IV ONE (16:19)
--- NOTE | 2016-03-24 17:14 | General Progress Note ---
Assessment/Plan Assessment/Plan Assessment - N/V, transient?, Etiology? - abdormal LFT - Fatty liver - Sedation - obesity Recommendations - PO diet as tolerated - check hepatitis serologies - Neuro w/u - follow LFT - outpt f/u with Dr. Hidalgo Subjective Allergies: Coded Allergies: IBUPROFEN (Verified Allergy, Unknown, 02/03/16) Subjective more awake c/o sore throat, but better tolerating po Objective Last 24 Hour Vital Signs Date Time Temp Pulse Resp B/P Pulse Ox O2 Delivery O2 Flow Rate FiO2 03/24/16 16:08 98.4 90 20 158/80 97 Room Air 03/24/16 12:00 98.4 88 20 152/80 97 Room Air 03/24/16 08:00 98.6 92 20 166/85 96 Room Air 03/24/16 06:01 97.9 94 20 126/73 98 Room Air 03/24/16 00:00 97.8 102 20 142/90 96 Room Air 03/23/16 20:42 97.9 03/23/16 20:28 97.9 101 20 132/68 96 Room Air Intake and Output 03/23/16 03/24/16 19:00 07:00 Intake Total 375 ml 1265 ml Balance 375 ml 1265 ml Intake Oral 440 ml IV Total 375 ml 825 ml # Voids 3 2 Height (Feet): 5 Height (Inches): 6.00 Weight (Pounds): 184 Objective WDWN NCAT supple CTA RRR Soft NT ND no edema non focal JENNI BRIGGS Mar 24, 2016 17:14
--- NOTE | 2016-03-26 08:40 | Cardiology Report ---
APPROVED REPORT EKG Measurement Heart [id number] [id number] Sinus tachycardia Minimal voltage criteria for LVH, may be normal variant Possible Inferior infarct, age undetermined Cannot rule out Anterior infarct, age undetermined Abnormal ECG
--- NOTE | 2016-03-26 13:52 | Discharge Summary ---
Discharge Summary Hospital Course Date of Admission Mar 21, 2016 at 15:50 Date of Discharge Mar 24, 2016 at 16:20 Admitting Diagnosis SEPSIS HPI Viji Mcgarry is a 40 year old female who was admitted on Mar 21, 2016 at 15 :50 for Sepsis Hospital Course dc summary dictated #[id number] Discharge Condition Upon Discharge: improving, stable Discharge Disposition Patient was discharged to Home (01) Discharge Diagnoses: Discharge Instructions Discharge Instructions Special Instructions I have been assigned to complete a D/C Summary on this account. I was not involved in the patient management Gloria Rivas NP ([place]) Mar 26, 2016 13:52
--- NOTE | 2016-03-27 10:48 | Discharge Summary 2 SIG ---
DATE OF ADMISSION: 03/21/2016 DATE OF DISCHARGE: 03/24/2016 CONDITION: Stable. DISPOSITION: The patient is being discharged home. REASON FOR ADMISSION: This is a 40-year-old female, who presented with vomiting. She reported sore throat and then multiple episodes of vomiting. The patient was recently started on Phenergan with codeine. She was not able to tolerate food because of the sore throat and her mother was just diagnosed to have a strep throat. The patient came for evaluation, initially presented with mild leukocytosis of 12.9, which resolved on the next day, afebrile. Chemistry was stable except mild elevation in transaminase and bilirubin. HOSPITAL COURSE: Patient admitted to [facility] floor. GI consult was requested. Initially started on IVF. Antiemetic provided as needed. CT abdomen and pelvis revealed no acute process, but indicative of fatty liver. Diet was slowly reintroduced. Hepatitis serology negative. HIV test negative. LFT trending down. Gi recommedned outpatietn follow up for fatty liver. Infectious Disease consult was requested. The patient was started empirically on penicillin and to be continued upon discharge. Throat culture negative, no beta strep isolated. Blood culture negative. Influenza screen negative. Pharyngitis liekly viral , however due to the fact that her mother has strep throat and Monospot was unavailable, ID recommended to continue penicillin-VK as outpatient. LFTs trending down. CT of the abdomen and pelvis noted, it revealed evidence of fatty liver and diverticulosis with no diverticulitis. Chest x-ray negative for any acute cardiopulmonary disease. The patient counseled on abstinence from drug abuse. The patient likely has polysubstance abuse problems. Urine drug screen is positive for benzodiazepine and opiates. Nausea and vomiting resolved. Lipase within normal limits. test negative. The patient's leukocytosis resolved afebrile. Urinalysis negative. Chest x-ray, no evidence of infiltrate. Blood culture negative. The patient was stable for discharge home on antibiotics as recommended by Infectious Disease doctor. DISCHARGE DIAGNOSIS: sepsis pharyngitis -viral vs possible GAS fatty liver disease elevated transaminase polysubstance abuse DISCHARGE MEDICATIONS: see medications reconciliation lsit DISCHARGE INSTRUCTIONS: dc home , fup with primary care provider, follow up with GI dr Hidalgo in 1-2 weeks Elda Yap M.D. I have been assigned to dictate discharge summary on this account and I was not involved in the patient's management. Gloria Penalozatahira NAramis DR: Glenys JOB#: [id number] CC: OMEGA
== END 2016-03-24 16:20 | disposition home or self-care (01) | DRG 720 ==
LOC: EMR 10:20 → 3E 15:50 → 2E 15:50 → UNDOADMIN 15:50 → EDBEDREQ 16:32 → EDBEDREQSVC 17:01 → EDBEDREQ 17:04 → 3E 20:30
DX: A41.9 Sepsis, unspecified organism (principal); K76.0 Fatty (change of) liver, not elsewhere classified; J02.9 Acute pharyngitis, unspecified; K57.90 Diverticulosis of intestine, part unspecified, without perforation or abscess without bleeding; Z88.6 Allergy status to analgesic agent; R11.2 Nausea with vomiting, unspecified; R41.82 Altered mental status, unspecified; L60.0 Ingrowing nail; L03.031 Cellulitis of right toe; F19.10 Other psychoactive substance abuse, uncomplicated; E66.9 Obesity, unspecified; Z68.41 Body mass index [BMI] 40.0-44.9, adult
CPT/HCPCS: 36415; 71010; 74177; 80053; 80300; 81003; 81025; 82150; 82248; 82550; 82553; 82962; 83605; 83690; 84484; 85007; 85025; 85730; 86703; 86705; 86709; 86710; 86803; 87040; 87070; 87340; 93005; 96372; 96374; 96375; C9399; J2310; J2405